=== PATIENT | male | born 1965 | race Caucasian/White ===

== ENCOUNTER 2017-02-02 09:00 | Emergency (ER) | payer MEDICAID | END 2017-02-02 11:09 | disposition home or self-care (01) | LOC: D.ER 09:00 | DX: S63.92XA Sprain of unspecified part of left wrist and hand, initial encounter (principal); W23.0XXA Caught, crushed, jammed, or pinched between moving objects, initial encounter; Y93.89 Activity, other specified; Y92.010 Kitchen of single-family (private) house as the place of occurrence of the external cause; K21.9 Gastro-esophageal reflux disease without esophagitis; I10 Essential (primary) hypertension ==